=== PATIENT | male | born 1975 | race Caucasian/White ===

== ENCOUNTER 2017-04-03 16:28 | Inpatient (IN) | payer BC, OTHER ==
[~2017-04-03] VITALS: Ht 180.3 cm; Wt 76.2 kg
[2017-04-03] MEDS ORDERED: LORAZEPAM 2 MG/1 ML VIAL IM PRN (17:15)
[2017-04-03] MEDS ORDERED: ACETAMINOPHEN 325 MG TABLET PO PRN (17:15)
[2017-04-03] MEDS ORDERED: MAGNESIUM HYDROXIDE 30 ML LIQUID UDC PO PRN (17:15)
[2017-04-03] MEDS ORDERED: LORAZEPAM 1 MG TABLET PO PRN ×2 (17:15)
[2017-04-03] MEDS ORDERED: ONDANSETRON 4 MG/2 ML VIAL IM PRN (17:15)
[2017-04-03] MEDS ORDERED: MIRALAX 17 GM POWD.PACK PO PRN (17:15)
[2017-04-03] MEDS ORDERED: DICYCLOMINE HCL 20 MG TABLET PO PRN (17:15)
[2017-04-03] MEDS ORDERED: LOPERAMIDE HCL 2 MG CAPSULE PO PRN ×2 (17:15)
[2017-04-03] MEDS ORDERED: ONDANSETRON ODT 4 MG TAB.RAPDIS SL PRN (17:15)
[2017-04-03] MEDS ORDERED: diphenhydrAMINE 50 MG CAPSULE PO PRN (17:15)
--- NOTE | 2017-04-03 18:30 | NUR ---
Pre-Admission note Pt presents to [facility] for Benzo and alcohol dependence. Pt's VS: BP: 130/95, HR: 122, RR: 16, SpO2: 99%, P: no pain. PT reports being admitted to [facility] of his own free will. PT is in stable condition at this time.
--- NOTE | 2017-04-03 19:45 | NUR ---
START OF SHIFT NOTE PATIENT IS A 41 YEAR OL MALE ADMITTED TO [facility] ON 04-03-17 AT 1800. PATIENT ADMITTED FOR BENZODIAZEPINE AND ALCOHOL DETOX. PATIENT HAS BEEN USING VODKA 1 LITER DAILY FOR LAST 2 WEEKS, WELL LORAZEPAM 8 MG DAILY FOR LAST TWO WEEKS. PATIENT HAS SEIZURE AND FALL HISTORY WHILE DETOXING.PATIENT REPORTS FALL FROM BED A FEW DAYS AGO RESULTING IN PERIORBITAL EDEMA TO LEFT EYE, WELL BRUISING TO UPPER LEFT ARM. PATIENT REPORTS HE HAD A SEIZURE ON SUNDAY AT HOME. PATIENT HAS PAST MEDICAL HISTORY OF BIPOLAR DISORDER, ANXIETY, HYPERTENSION, AND IBS. REPORTS SURGERY THIS SUMMER FOR CHOLECYSTECTOMY. HE IS ALLERGIC TO CALCIUM CHANNEL BLOCKERS. HIS HOME MEDICATIONS INCLUDE STELAZINE, COGENTIN, DONNATEL, GABAPENTIN, FAMOTIDINE, FOLIC ACID AND FLONASE. PATIENT DID NOT BRING MEDICATIONS AND IS UNSURE OF DOSES AND LAST USE. PATIENT GAVE NURSE APPROXIMATE DOSES. PATIENT ALSO REPORTS HIS PRESCRIBING PSYCHIATRIST IS IN [facility]. HE STATES HE DOES NOT REMEMBER THE NAME. PATIENT PROVIDED URINE FOR DRUG SCREEN, AND LABS WERE DRAWN. BODY SEARCH COMPLETED. NO OPEN WOUNDS OR SKIN BREAKDOWN NOTED. PATIENT IS 5'11' WEIGHT 168 LBS. PATIENT IS LABILE, LOUD WITH PRESSURED SPEECH AND FLIGHT OF IDEAS. HE DENIES ANY SI OR HI. HE DENIES ANY PAST SI OR ATTEMPTS. PATIENT STATES HE WAS DIAGNOSED BIPOLAR 1 A FEW YEARS AGO AND ONLY SUFFERS FROM [facility]. STATING HIS DEPRESSIVE EPISODES HAVE BEEN A TOTAL OF 3-4 ONE BEING AFTER LOSING HIS FATHER 2 YEARS AGO TO CANCER. HE STATES THEY WERE "THICK THIEVES" AND THIS WAS A MAJOR LOSS IN HIS LIFE. 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 HE HE IS A FULL CODE AND ON A REGULAR DIET. HIS LONGEST PERIOD OF SOBRIETY IS 45 DAYS EARLIER THIS YEAR. HE REPORTS BEING AT [facility] IN [place] LAST WEEK FOR DETOX, HE ALSO REPORTS BEING AT [facility] FROM 01-27-17 TO 03-08-17. HE STATES HE THEN WENT TO [facility] IN [place] FROM 02-07-17 TO 03-08-17. VITAL SIGNS BP 135/91, P 104, R 18, SPO2 97% ON RA, T 98.4 CIWA 11. SAFETY MEASURES IN PLACE, 2 PADDED SIDE RAILS UP FOR SAFETY. CALL LIGHT WITHIN REACH. Addendum: 04/03/17 at 2344 by JUANI MCALLISTER RN ADMISSION NOTE
[2017-04-03 20:00] VITALS: BP 135/91
[2017-04-03 20:00] LABS: *AMPHETAMINE, URINE NEGATIVE (NEGATIVE); *BARBITURATE, URINE POSITIVE (NEGATIVE); *CANNABINOID, URINE NEGATIVE (NEGATIVE); *COCCAINE, URINE NEGATIVE (NEGATIVE); *OPIATE, URINE NEGATIVE (NEGATIVE); *PHENCYCLIDINE SCREEN,URINE NEGATIVE (NEGATIVE)
[2017-04-03 20:07] LABS: BASOPHILS % (AUTO) 0.7 % (0.0-2.0); EOSINOPHILS % (AUTO) 0.4 % (0.0-7.0); HEMATOCRIT 41.2 % (40-50); HEMOGLOBIN 13.8 G/DL (14.0-18.0); LYMPHOCYTES # (AUTO) 1.9 K/UL (0.8-4.8); LYMPHOCYTES % (AUTO) 35.6 % (20.5-51.5); MEAN CORPUSCULAR HEMOGLOBIN 31.5 UUG (27.0-31.0); MEAN CORPUSCULAR HGB CONC 34 g/dL (32.0-37.0); MEAN CORPUSCULAR VOLUME 94.3 FL (82.0-92.0); MONOCYTES # (AUTO) 0.6 K/UL (0.1-1.30); MONOCYTES % (AUTO) 11.3 % (0.0-11.0); NEUTROPHILS # (AUTO) 2.7 K/UL (1.8-8.9); PLATELET COUNT (AUTO) 453 K/UL (150-450); RED BLOOD CELL COUNT(AUTO) 4.37 MIL/UL (4.7-6.1); WHITE BLOOD COUNT (AUTO) 5.2 K/UL (4.0-11.2)
[2017-04-03 20:18] LABS: BILIRUBIN,TOTAL 0.5 mg/dL (0.2-1.0); MAGNESIUM 1.7 mg/dL (1.8-2.4); POTASSIUM 4.2 mmol/L (3.5-5.1); TOTAL PROTEIN, SERUM 8.1 g/dL (6.4-8.2)
[2017-04-03] MEDS: OLANZAPINE 5 MG TABLET PO SCH (20:19)
[2017-04-03] MEDS: BENZTROPINE MESYLATE 1 MG TABLET PO SCH (20:20)
[2017-04-03] MEDS: GABAPENTIN 300 MG CAPSULE PO SCH (20:20)
[2017-04-03 20:24] LABS: CREATININE 1.3 mg/dL (0.6-1.3)
[2017-04-03] MEDS ORDERED: LORAZEPAM 1 MG TABLET PO SCH (21:00)
[2017-04-03] MEDS ORDERED: THIAMINE HCL 200 MG/2 ML VIAL IM ONE (21:00)
[2017-04-03] MEDS ORDERED: TRIFLUOPERAZINE 5 MG PO SCH (21:00)
[2017-04-03] MEDS ORDERED: MAGNESIUM OXIDE 400 MG TABLET PO ONE (21:00)
[2017-04-03] MEDS ORDERED: TRIF5TAB GT (23:03)
[2017-04-03] MEDS ORDERED: BENZ1TAB7 PO (23:04)
[2017-04-03] MEDS ORDERED: PHEN16.234 PO (23:05)
[2017-04-03] MEDS ORDERED: GABA-534 PO (23:06)
[2017-04-03] MEDS ORDERED: FOLI1TAB16 PO (23:07)
[2017-04-03] MEDS ORDERED: FLUT9.9S NS (23:07)
[2017-04-03] MEDS ORDERED: FAMO20TA8 PO (23:07)
[2017-04-04] VITALS: BP 124/77
--- NOTE | 2017-04-04 | NUR ---
CIWA DEFERRED 0000 CIWA DEFERRED FOR SLEEP.
[2017-04-04 04:00] VITALS: BP 118/84
--- NOTE | 2017-04-04 04:00 | NUR ---
CIWA DEFERRED CIWA DEFERRED AT 0400 FOR SLEEP.
--- NOTE | 2017-04-04 06:48 | NUR ---
END OF SHIFT NOTE PATIENT IS A 41 YEAR OLD MALE ADMITTED TO [facility] ON 04-03-17 AT 1800. PATIENT ADMITTED FOR BENZODIAZEPINE AND ALCOHOL DETOX. PATIENT HAS BEEN USING VODKA 1 LITER DAILY FOR LAST 2 WEEKS, WELL LORAZEPAM 8 MG DAILY FOR LAST TWO WEEKS. PATIENT HAS SEIZURE AND FALL HISTORY WHILE DETOXING.PATIENT REPORTS FALL FROM BED A FEW DAYS AGO RESULTING IN PERIORBITAL EDEMA TO LEFT EYE, WELL BRUISING TO UPPER LEFT ARM. PATIENT REPORTS HE HAD A SEIZURE ON SUNDAY AT HOME. PATIENT HAS PAST MEDICAL HISTORY OF BIPOLAR DISORDER, ANXIETY, HYPERTENSION, AND IBS. HE HAS ALLERGY TO CALCIUM CHANNEL BLOCKERS. PATIENT HAS LABILE MOOD AND FLIGHT OF IDEAS. HE DENIES ANY SI OR HI. HE DENIES ANY PAST SI OR ATTEMPTS. HE IS A FULL CODE AND ON A REGULAR DIET. VITAL SIGNS 1999 BP 135/91, P 104, R 18, SPO2 97% ON RA, T 98.4 CIWA 11. PATIENT RECEIVED ONE TIME DOSE OF ATIVAN 2 MG PO AT . PATIENT RECEIVED [id number] MG IM INJECTION TO RIGHT DELTOID AT 2018.. PATIENT WITH LOW MAGNESIUM LEVEL (1.7) PATIENT WAS ADMINISTERED MAG OX 400 MG PO ORDERED FOR REPLACEMENTAT 2058, PATIENT RECEIVED ZYPREXA 5 MG PO ORDERED BY PSYCHIATRIST TO REPLACE STELAZINE, STELAZINE NOT FORMULARY IN PHARMACY. PATIENT VITAL SIGNS AT 0000 BP 124/77. P 103, R 16, SPO2 99% ON RA, T 98.0 CIWA DEFERRED FOR SLEEP. VS AT 0400 BP 118/84, P 76. R 16, SPO2 98% ON RA, T 98.1. CIWA DEFERRED FOR SLEEP. PATIENT SLEPT A TOTAL OF 8 HOURS. PATIENT INTAKE 1297, OUTPUT 1 VOID. SAFETY MEASURES IN PLACE, 2 PADDED SIDE RAILS UP FOR SAFETY. FALL AND SEIZURE PRECAUTIONS. CALL LIGHT WITHIN REACH. REPORT TO AM NURSE.
--- NOTE | 2017-04-04 07:41 | NUR ---
BEGINNING OF SHIFT Patient is a 41 year old Female, with admitting Dx: etoh/bzo Dependence. Patient with past medical history of: Anxiety,bipolar d/o, IBS, HTN, and cholecystectomy. Patient received no PRNs during operation shift supervisor. . Fall and seizure precautions in place. Patient skin is intact. Per operation shift supervisor patient slept for 8 hours, Patient with last ciwa score of: 11. Patient is scheduled to begin a 5 day ativan taper as ordered, and is scheduled to begin day 1 of taper. Patient received in bed awake, alert and oriented x4, educated patient regarding plan of care for the day and medication regimen with good verbal understanding. Safety measures in place. call light kept with in reach, will continue to monitor closely.
[2017-04-04 08:51] VITALS: BP 108/62
[2017-04-04] MEDS: OLANZAPINE 5 MG TABLET PO SCH ×2 (08:53→20:42)
[2017-04-04] MEDS: MULTIVITAMINS,THERAPEUTIC TABLET PO SCH (08:53)
[2017-04-04] MEDS: GABAPENTIN 300 MG CAPSULE PO SCH ×3 (08:53→20:42)
[2017-04-04] MEDS: IBUPROFEN 400 MG TABLET PO PRN (08:53)
[2017-04-04] MEDS: THIAMINE HCL 100 MG TABLET PO SCH (08:53)
[2017-04-04] MEDS: LORAZEPAM 1 MG TABLET PO SCH ×4 (08:53→20:42)
[2017-04-04] MEDS: DULOXETINE 60 MG CAPSULE.DR PO SCH (08:53)
[2017-04-04] MEDS: BENZTROPINE MESYLATE 1 MG TABLET PO SCH ×2 (08:53→20:42)
--- NOTE | 2017-04-04 08:53 | NUR ---
PRN MOTRIN Patient c/o 02/15 headache, provided with non pharmacological interventions with no relief, administered Motrin PO as ordered, will monitor effectiveness of medication.
[2017-04-04] MEDS: FOLIC ACID 1 MG TABLET PO SCH (08:54)
[2017-04-04] MEDS ORDERED: TUBERCULIN,PURIF.PROT.DERIV. 5 TU/0.1 ML TEST ID ONE (09:00)
--- NOTE | 2017-04-04 09:53 | NUR ---
MOTRIN REASSESSMENT Patient reports medication effective, current head ache pain level 2/10, tolerable as per patient.
[2017-04-04] MEDS ORDERED: LORAZEPAM 1 MG TABLET PO ONE (10:45)
[2017-04-04] MEDS ORDERED: PATIENT MAY USE OWN MED- MD OK NS SCH (10:45)
[2017-04-04 12:27] VITALS: BP 151/115
[2017-04-04] MEDS: CLONIDINE HCL 0.1 MG TABLET PO PRN (12:28)
--- NOTE | 2017-04-04 12:28 | NUR ---
PRN CLONIDINE Patient with blood pressure: 151/115 heart rate: 106, Administered clonidine 0.1mg PO as ordered, will monitor effectiveness of medication, patient denies chest pain.
[2017-04-04] MEDS: FLUTICASONE PROP NASAL SPRAY 16 GM BOTTLE NS SCH (12:29)
[2017-04-04] MEDS ORDERED: PATIENT MAY USE OWN MED- MD OK PO SCH (13:00)
--- NOTE | 2017-04-04 13:38 | NUR ---
CLONIDINE REASSESSMENT medication effective, blood pressure decreased to: 140/88 heart rate: 98. will continue to monitor.
[2017-04-04 17:14] VITALS: BP 116/85
--- NOTE | 2017-04-04 19:05 | NUR ---
END OF SHIFT Patient alert and oriented x4, patient compliant with therapeutic plan of care. Patient continues on Ativan taper as ordered and is currently on day 1 of taper, well tolerated, no ASE noted. Patient with admitting Dx: etoh/bzo dependence. During shift patient administered PPD as ordered to left f/a, well tolerated. 0900 assessment presented with: sweats, fine tremors, moderate anxiety, restlessness, visual hallucinations (verbalized seeing "electric in air" , moderate head fullness/head ache with ciwa score of: 16; 1300 assessment patient presented with: sweats, fine tremors, anxiety, restlessness, visual hallucinations, very mild head fullness with ciwa score of: 16; 1700 assessment patient presented with: fine tremors, barely sweating, anxiety, mild agitation, and visual hallucinations with ciwa score of: 11 Detox medication effective at reducing withdrawal symptom. Patient was administered PRN:clonidine 0.1mg PO for increased blood pressure as ordered during shift, medication effective one hour post administration blood pressure decreased. Patient was also administered Motrin as ordered, medication effective one hour post administration. Patient was encouraged to increase PO fluid intake as tolerated. Patient denies SI/HI. MD is aware of patients current status, continues under close observation. Patient endorsed to scene shifter nurse, all pertinent information discussed
--- NOTE | 2017-04-04 19:45 | NUR ---
START OF SHIFT REPORT PATIENT IS A 41 YEAR OLD MALE ADMITTED TO [facility] ON 04-03-17 FOR ALCOHOL AND BENZO DETOX. PATIENT IS CURRENTLY ON A FIVE DAY ATIVAN TAPER. HE HAS A HISTORY OF WITHDRAWAL SEIZURES AND IS ON BOTH FALL AND SEIZURE PRECAUTIONS. PATIENT HAS PAST MEDICAL HISTORY OF BIPOLAR DISORDER, ANXIETY, IBS, AND HTN. HE HAS ALLERGY TO CALCIUM CHANNEL BLOCKERS. HE IS A FULL CODE AND ON A REGULAR DIET. LAST CIWA 11 AT 1600. PATIENT REPORTED AUDITORY HALLUCINATIONS "SEEING ELECTRICITY" EARLIER IN DAY. PATIENT DENIES SI OR HI MOOD IS STABLE. SPEECH IS FLUENT AND THOUGHTS ARE LUCID. HE CURRENTLY DENIES AH OR VH. PATIENT IN ROOM AT CHANGE OF SHIFT FINISHING DINNER. STATES HE IS FEELING "BETTER". VITAL SIGNS ARE STABLE. SAFETY MEASURES IN PLACE, 2 PADDED SIDE RAILS UP FOR SAFETY. BED LOCKED IN LOWEST POSITION. CALL LIGHT WITHIN REACH.
[2017-04-04 20:00] VITALS: BP 126/91
[2017-04-05] VITALS (7 sets, daily range): BP systolic 128–153; BP diastolic 72–110
--- NOTE | 2017-04-05 | NUR ---
CIWA DEFERRED 0000 CIWA DEFERRED FOR SLEEP
[2017-04-05] MEDS: IBUPROFEN 400 MG TABLET PO PRN ×3 (04:12→21:01)
--- NOTE | 2017-04-05 04:12 | NUR ---
prn medication motrin 400 mg po given at 0412 for headache pain 4 out of 10 as well as fullness in head. Effect pending.
--- NOTE | 2017-04-05 05:12 | NUR ---
REASSESSMENT OF PATIENT PATIENT REASSESSED ONE HOUR AFTER MOTRIN 400 MG PO PRN GIVEN FOR HEADACHE. PATIENT CURRENTLY ASLEEP/NO COMPLAINTS OFFERED.
[2017-04-05 06:06] LABS: HEPATITIS B SURFACE AG Negative (Negative)
--- NOTE | 2017-04-05 06:41 | NUR ---
END OF SHIFT NOTE PATIENT IS A 41 YEAR OLD MALE ADMITTED TO [facility] ON 04/03/17 FOR ALCOHOL AND BENZO DETOX. HE IS ON A FIVE DAY ATIVAN TAPER. HE IS A FULL CODE, ON A REGULAR DIET, WITH ALLERGY TO CALCIUM CHANNEL BLOCKERS. PATIENT HAS PMH OF BIPOLAR DISORDER, ANXIETY, IBS, AND HTN. HIS MOOD HAS REMAINED STABLE, DENIES ANY SI OR HI. SPEECH CLEAR AND COHERENT. VS AT 2000 BP 126/91, P 98, R 16, SPO2 98% ON RA, T 97.3. CIWA 7. PATIENT VS AT 0000 BP 133/103, P 93, R 18, SPO2 98% ON RA, T 98.0. CIWA DEFERRED FOR SLEEP. 0400 VS BP 128/78, P 84, R 16, SPO2 98% ON RA, T 98.6 CIWA 8 WITH SYMPTOMS INCLUDING: ANXIETY, MILD FEELINGS OF PINS AND NEEDLES, MILD VISUAL DISTURBANCES, PERIODICALLY SEEING ELECTRICAL FLASHES, AND STATES HEADACHE OF 5 OUT OF 10 WITH HEAD FULLNESS REPORTED. PATIENT GIVEN MOTRIN 400 MG PO WITH EFFECT. INTAKE:2094 ML OUTPUT:2 VOIDS 1 BM. SLEPT A TOTAL OF 9 HOURS. SAFETY MEASURES IN PLACE, CALL LIGHT WITHIN REACH, BED LOCKED AND IN LOWEST POSITION WITH 2 PADDED SIDE RAILS UP FOR SAFETY. REPORT TO AM NURSE.
[2017-04-05] MEDS: THIAMINE HCL 100 MG TABLET PO SCH (08:55)
[2017-04-05] MEDS: GABAPENTIN 300 MG CAPSULE PO SCH ×3 (08:56→20:32)
[2017-04-05] MEDS: FOLIC ACID 1 MG TABLET PO SCH (08:56)
[2017-04-05] MEDS: OLANZAPINE 5 MG TABLET PO SCH ×2 (08:56→20:33)
[2017-04-05] MEDS: BENZTROPINE MESYLATE 1 MG TABLET PO SCH ×2 (08:56→20:33)
[2017-04-05] MEDS: MULTIVITAMINS,THERAPEUTIC TABLET PO SCH (08:56)
[2017-04-05] MEDS: LORAZEPAM 1 MG TABLET PO SCH ×3 (08:56→20:33)
[2017-04-05] MEDS: FLUTICASONE PROP NASAL SPRAY 16 GM BOTTLE NS SCH (08:57)
--- NOTE | 2017-04-05 09:00 | NUR ---
START OF SHIFT Received report from production shift supervisor nurse. Patient is 24 year old female admitted for medically supervised withdrawal from alcohol. Patient is full code with allergy to apples. Patient is alert and oriented X4. On 5-Day Ativan taper. On assessment this AM: CIWA:9. Denies SOB, chest pain. Vitals signs: BP 153/110, HR 116, RR 20, Temp 98.5, 02 sat 94% RA. Reports anxiety, bilateral hand tremors noted, feelings of fullness on the head and visual hallucinations (seeing flashes). Denies sweating, body ache, nausea, vomiting, stomach cramping, tactile disturbance and auditory hallucinations. Med compliant with AM meds. Patient requesting for famotidine and sucralfate, MD made aware. Tolerating breakfast without n/v at this time. Patient was encouraged to attend group meetings today. Will continue to monitor patient. Addendum: 04/05/17 at 1007 by GILLES IYER RN Correction: this patient is 41 year old male admitted for medically supervised withdrawal from alcohol and lorazepam. Patient is full code with allergy to calcium channel blocking agents.
[2017-04-05] MEDS: DULOXETINE 60 MG CAPSULE.DR PO SCH (09:18)
[2017-04-05 10:39] LABS: CREATININE 1.2 mg/dL (0.6-1.3); MAGNESIUM 1.6 mg/dL (1.8-2.4); POTASSIUM 4.6 mmol/L (3.5-5.1)
--- NOTE | 2017-04-05 10:50 | NUR ---
MD COMMUNICATION Multifocal Lens Assembler received phone call from lab that patient's blood glucose was 356. Md was notified.
[2017-04-05] MEDS: CLONIDINE HCL 0.1 MG TABLET PO PRN (10:54)
--- NOTE | 2017-04-05 10:54 | NUR ---
PRN CLONIDINE Patient's BP 148/106, HR 103. PRN clonidine given. Will continue to monitor patient.
[2017-04-05] MEDS ORDERED: DEXTROSE 50% 50 ML DISP.SYRIN IV PRN (11:15)
[2017-04-05] MEDS ORDERED: LINAGLIPTIN 5 MG TABLET PO ONE (11:30)
--- NOTE | 2017-04-05 11:54 | NUR ---
REASSESSMENT PRN CLONIDINE Patient's BP 137/101, HR 100, effective.
[2017-04-05] MEDS: BLOOD SUGAR DIAGNOSTIC 1 EACH STRIP VI SCH ×3 (12:01→20:36)
[2017-04-05] MEDS ORDERED: MAGNESIUM OXIDE 400 MG TABLET PO ONE (12:15)
[2017-04-05] MEDS ORDERED: FAMOTIDINE 20 MG TABLET PO ONE (12:15)
[2017-04-05] MEDS ORDERED: SITAGLIPTIN PHOSPHATE 50 MG TABLET PO ONE (12:15)
[2017-04-05] MEDS: SUCRALFATE 1 G TABLET PO SCH ×2 (12:28→16:48)
--- NOTE | 2017-04-05 13:03 | NUR ---
Therapist prompted client about group times. Client stated he will attend all groups today.
[2017-04-05] MEDS: INSULIN REGULAR, HUMAN 300 UNIT/3 ML VIAL SQ PRN ×2 (13:11→16:50)
--- NOTE | 2017-04-05 16:48 | NUR ---
PRN IBUPROFEN Patient complained of L eye pain 2/10. PRN ibuprofen given. Will continue to monitor patient.
--- NOTE | 2017-04-05 18:40 | NUR ---
REASSESSMENT PRN IBUPROFEN Patient reports decreased pain, 0/10, effective
--- NOTE | 2017-04-05 18:54 | NUR ---
END OF SHIFT Received report from night clerk auditor nurse. Patient is 41 year old male admitted for medically supervised withdrawal from alcohol and lorazepam. Patient is full code with allergy to calcium channel blocking agents. Patient is alert and oriented X4. On 5-Day Ativan taper. Most recent CIWA: 5. Compliant with routine meds during this shift. Patient received clonidine for elevated BP and ibuprofen for L eye pain this shift, effective. Tolerating meals without n/v at this time. Blood sugar at lunch time was 262 (9 units sliding scale regular insulin given) and dinner time was 128 (no sliding scale required). Will continue to monitor patient. Patient was encouraged to attend group meetings today. Will continue to monitor patient.
--- NOTE | 2017-04-05 19:15 | NUR ---
Start of Shift Note: Patient is a 41 y/o male admitted on 04/03/17 for ETOH and Benzo dependence. Patient reported drinking 1 liter of Vodka daily for 2 weeks and took Ativan 8mg daily for 2 weeks. Patient has PMHx of Bipolar disorder, Anxiety, IBS, HTN, Diabetes & hx of Cholecystectomy. No seizure history noted Patient is on a regular diet and pt is allergic to any Calcium Channel Blockers. Full Code status. Patient is on a 5-day Ativan taper and tolerating well. Last CIWA is 5. Pt was given a PRN Motrin & Clonidine during day shift. Last Blood Sugar was 128 mg/dl before dinner. Patient is alert & oriented x4. No shortness of breath noted. Respiration even & unlabored. Abdomen soft & non-distended. No nausea/vomiting noted. Patient denies any pain/discomfort. Hand tremors felt but not seen. Patient reported very light visual disturbance at this time. Safety measures in place. Bed locked in lowest position. Both side rails up. Call light within pt's reach. Will continue to monitor patient.
[2017-04-05] MEDS: INSULIN REGULAR, HUMAN 300 UNITS/3 ML VIAL SQ PRN (20:37)
--- NOTE | 2017-04-05 21:01 | NUR ---
PRN Motrin Patient complained of 3/10 left eye pain and left arm pain. PRN Motrin PO administered as ordered. Will continue to monitor for effectiveness of medication.
--- NOTE | 2017-04-05 22:01 | NUR ---
PRn Reassessment Patient verbalized relief from eye pain. PRN medication effective. Will continue to monitor patient.
--- NOTE | 2017-04-06 | NUR ---
Vitals/Ciwa deferred Patient refused vitals at this time. Patient asleep in bed and appears comfortable. No shortness of breath noted. Unable to assess CIWA at this time. Will continue to monitor patient.
[2017-04-06] MEDS: MAG HYDROX/AL HYDROX/SIMETH 30 ML LIQUID UDC PO PRN ×2 (06:46→17:22)
[2017-04-06] MEDS: SUCRALFATE 1 G TABLET PO SCH ×3 (06:46→17:16)
--- NOTE | 2017-04-06 06:46 | NUR ---
PRN Maalox Patient complained of heartburn. PRN Maalox administered as ordered. Will continue to monitor patient.
--- NOTE | 2017-04-06 07:08 | NUR ---
Start of Shift Endorsement received from nightshift nurse. PT is a 41 y/o male admitted for alcohol and benzo dependence. Pt has been placed on a 5 day Ativan taper. Pt is tolerating the taper and moderately withdrawing AEB CIWA 4. PT reports sleeping 7 hours. Pt received PRN Motrin and Maalox. VS WNL. Full Code. Pt is alert and oriented x4. PT is alert and oriented x4. Pt is in STABLE condition at this time. Remains compliant with medication and diet regimen. All needs have been met, All safety measures in place per hospital policy. Bed in lowest position, side rails up x2, call-light within reach. Will continue to monitor
--- NOTE | 2017-04-06 07:13 | NUR ---
End of Shift Note: Patient had an uneventful night. Patient continues on his Ativan taper and tolerating well. Last CIWA is 4. Patient reported that medication is effective in controlling his withdrawal symptoms. PRN Motrin was given to patient during my shift and was effective. Patient noted with a 312 mg/dl at 2100 and was medicated with 8 units of regular insulin as prescribed. Patient remained stable and vitals remains WNL. Patient remains compliant with medications and treatment plan. Patient is alert & oriented x4. No s/s of distress noted. Patient still asleep at this time. Patient slept for a total of 6 hours. Pt consumed 1000ml of fluids. Voided 1x with no bowel movement. All needs attended & met. Safety measures in place. Will endorse pt to day shift nurse.
[2017-04-06] MEDS: BLOOD SUGAR DIAGNOSTIC 1 EACH STRIP VI SCH ×4 (07:30→21:21)
[2017-04-06 08:00] VITALS: BP 165/94
--- NOTE | 2017-04-06 08:00 | NUR ---
Accucheck Did not perform accucheck on pt, the pt got a blood draw for the blood glucose test performed instead.
[2017-04-06] MEDS: BENZTROPINE MESYLATE 1 MG TABLET PO SCH ×2 (08:10→21:16)
[2017-04-06] MEDS: MULTIVITAMINS,THERAPEUTIC TABLET PO SCH (08:10)
[2017-04-06] MEDS: GABAPENTIN 300 MG CAPSULE PO SCH ×3 (08:10→21:16)
[2017-04-06] MEDS: FOLIC ACID 1 MG TABLET PO SCH (08:10)
[2017-04-06] MEDS: OLANZAPINE 5 MG TABLET PO SCH ×2 (08:10→21:17)
[2017-04-06] MEDS: FLUTICASONE PROP NASAL SPRAY 16 GM BOTTLE NS SCH (08:11)
[2017-04-06] MEDS: FAMOTIDINE 20 MG TABLET PO SCH (08:11)
[2017-04-06] MEDS: THIAMINE HCL 100 MG TABLET PO SCH (08:11)
[2017-04-06] MEDS: LINAGLIPTIN 5 MG TABLET PO SCH (08:11)
[2017-04-06] MEDS: DULOXETINE 60 MG CAPSULE.DR PO SCH (08:11)
[2017-04-06] MEDS ORDERED: LORAZEPAM 1 MG TABLET PO SCH ×2 (09:00→21:00)
[2017-04-06] MEDS ORDERED: SITAGLIPTIN PHOSPHATE 50 MG TABLET PO SCH (09:00)
[2017-04-06] MEDS: INSULIN REGULAR, HUMAN 300 UNIT/3 ML VIAL SQ PRN ×2 (09:17→11:22)
--- NOTE | 2017-04-06 11:16 | NUR ---
PRN Medication Pt received PRN Motrin for pain of 6/10 reported at the site of left bruised eye. Will re-asses.
[2017-04-06] MEDS: IBUPROFEN 400 MG TABLET PO PRN ×2 (11:18→21:16)
--- NOTE | 2017-04-06 11:40 | NUR ---
Medication re-assessment Pt reports pain of 3/10 at this time. Medication was effective.
[2017-04-06 12:00] VITALS: BP 146/88
[2017-04-06] MEDS: CLONIDINE HCL 0.1 MG TABLET PO PRN (12:12)
--- NOTE | 2017-04-06 12:12 | NUR ---
PRN Medication Pt received PRN Clonidine due to BP of 163/115. Will re-assess.
[2017-04-06] MEDS ORDERED: hydrALAZINE HCL 50 MG TABLET PO PRN (12:30)
--- NOTE | 2017-04-06 12:45 | NUR ---
Medication Re-assessment Medication was effective AEB BP: 145/86
[2017-04-06] MEDS: LORAZEPAM 1 MG TABLET PO SCH ×2 (13:27→17:16)
[2017-04-06] MEDS: CLONIDINE HCL 0.1 MG TABLET PO SCH ×2 (15:29→21:17)
[2017-04-06 16:00] VITALS: BP 114/68
--- NOTE | 2017-04-06 17:25 | NUR ---
PRN Medication Administered PRN Maalox for heartburn
[2017-04-06] MEDS ORDERED: LORAZEPAM 1 MG TABLET PO PRN ×2 (17:45)
--- NOTE | 2017-04-06 17:50 | NUR ---
Medication Re-assessment Pt reports relief from heartburn, medication was effective.
[2017-04-06] MEDS: METFORMIN HCL 500 MG TABLET PO SCH (18:34)
--- NOTE | 2017-04-06 19:06 | NUR ---
End of Shift Endorsement given to nightshift nurse. PT is a 41 y/o male admitted for alcohol and benzo dependence. Pt has been placed on a 5 day Ativan taper. Pt is tolerating the taper and moderately withdrawing AEB CIWA 6 at 1600. Pt participated in groups and activities. Pt presents with increased anxiety and agitation. Pt received PRN Motrin, Clonidine and Maalox. VS WNL. Full Code. Pt is alert and oriented x4. Intake: 2275ml, Void x4, BM x2. PT is alert and oriented x4. Pt is in STABLE condition at this time. Remains compliant with medication and diet regimen. All needs have been met, All safety measures in place per hospital policy. Bed in lowest position, side rails up x2, call-light within reach. Will continue to monitor
--- NOTE | 2017-04-06 19:15 | NUR ---
Start of Shift Note: Patient is a 41 y/o male admitted on 04/03/17 for ETOH and Benzo dependence. Patient reported drinking 1 liter of Vodka daily for 2 weeks and took Ativan 8mg daily for 2 weeks. Patient has PMHx of Bipolar disorder, Anxiety, IBS, HTN, Diabetes & hx of Cholecystectomy. No seizure history noted Patient is on a regular diet and pt is allergic to any Calcium Channel Blockers. Full Code status. Patient is on a 5-day Ativan taper and tolerating well. Last CIWA is 6. Pt was given a PRN Motrin, Clonidine & Maalox during day shift. Last Blood Sugar noted was 99 mg/dl. Patient is alert & oriented x4. No shortness of breath noted. Respiration even & unlabored. Abdomen soft & non-distended. No nausea/vomiting noted. Patient complained of 5/10 left eye pain, & anxiety upon assessment. Hand tremors felt but not seen. Pt denies any hallucinations at this time. Safety measures in place. Bed locked in lowest position. Both side rails up. Call light within pt's reach. Will continue to monitor patient.
[2017-04-06 20:00] VITALS: BP 137/88
--- NOTE | 2017-04-06 21:16 | NUR ---
PRN Motrin Patient complained a 4/10 left eye pain. PRN Motrin administered as ordered. Will monitor for effectiveness of medication.
[2017-04-06] MEDS: INSULIN REGULAR, HUMAN 300 UNITS/3 ML VIAL SQ PRN (21:23)
--- NOTE | 2017-04-06 22:16 | NUR ---
PRN Reassessment PRN medication effective. Pt verbalized relief from left eye pain. Patient lying in bed and appears comfortable. Will continue to monitor.
[2017-04-07 04:00] VITALS: BP 128/76
[2017-04-07] MEDS ORDERED: BLOOD SUGAR DIAGNOSTIC 1 EACH STRIP VI ONE (05:30)
--- NOTE | 2017-04-07 05:32 | NUR ---
Patient requesting blood glucose level to be checked. Pt stated "I am about to eat, so I want to know where my blood glucose level is at". Blood glucose checked as ordered and obtained a result of 318mg/dl. Encourage pt to follow dietary diabetic compliance but pt refused. Will continue to monitor patient.
[2017-04-07 05:41] VITALS: BP 124/93
[2017-04-07] MEDS: IBUPROFEN 400 MG TABLET PO PRN ×2 (05:41→21:06)
--- NOTE | 2017-04-07 05:41 | NUR ---
PRN Motrin Patient complained a 4/10 left eye pain. PRN Motrin administered as ordered. Will monitor for effectiveness of medication.
[2017-04-07] MEDS: SUCRALFATE 1 G TABLET PO SCH ×3 (06:40→16:58)
--- NOTE | 2017-04-07 06:41 | NUR ---
PRN Reassessment PRN medication effective. Pt verbalized relief from left eye pain. Will continue to monitor patient.
--- NOTE | 2017-04-07 07:08 | NUR ---
End of Shift Note: Patient continues on his Ativan taper and tolerating well. Last CIWA is 5. Patient reported that medication is effective in controlling his withdrawal symptoms. PRN Motrin was given 2x to patient during my shift and was effective. Patient noted with a 396 mg/dl at 2100 and was medicated with 10 units of regular insulin as prescribed. Blood glucose level was also checked at 0532 per pt's request and noted with a level of 318mg/dl. Pt is compliant with medications but non-compliant with dietary regimen. Educated pt regarding importance of dietary compliance. Patient remained stable and vitals remains WNL. Patient is alert & oriented x4. No s/s of distress noted. Patient slept for a total of 9 hours. Pt consumed 800ml of fluids. Voided 2x with no bowel movement. All needs attended & met. Safety measures in place. Will endorse pt to day shift nurse.
--- NOTE | 2017-04-07 07:58 | NUR ---
START OF SHIFT NOTE Received pt awake in room aox4. Patient reports feeling better, but has slight pressure in his head. He was given PRN Motrin x2 per night nurse. He is on a 5 day Ativan taper. Pt on seizure precautions for seizure history. Patient diabetic with accucheks AC and HS. Last CIWA 5 per night nurse. Encouraged pt to attend groups and activities. Encouraged pt to increase fluid intake to facilitate detox. Will monitor closely and offer help.
[2017-04-07 08:00] VITALS: BP 122/84
[2017-04-07] MEDS: BLOOD SUGAR DIAGNOSTIC 1 EACH STRIP VI SCH ×4 (08:08→21:10)
[2017-04-07] MEDS: INSULIN REGULAR, HUMAN 300 UNIT/3 ML VIAL SQ PRN ×2 (08:11→16:58)
[2017-04-07] MEDS: LINAGLIPTIN 5 MG TABLET PO SCH (08:13)
[2017-04-07] MEDS: FLUTICASONE PROP NASAL SPRAY 16 GM BOTTLE NS SCH (08:13)
[2017-04-07] MEDS: DULOXETINE 60 MG CAPSULE.DR PO SCH (08:14)
[2017-04-07] MEDS: BENZTROPINE MESYLATE 1 MG TABLET PO SCH ×2 (08:14→21:06)
[2017-04-07] MEDS: CLONIDINE HCL 0.1 MG TABLET PO SCH ×3 (08:14→21:06)
[2017-04-07] MEDS: MULTIVITAMINS,THERAPEUTIC TABLET PO SCH (08:14)
[2017-04-07] MEDS: FOLIC ACID 1 MG TABLET PO SCH (08:14)
[2017-04-07] MEDS: METFORMIN HCL 500 MG TABLET PO SCH ×2 (08:14→17:00)
[2017-04-07] MEDS: GABAPENTIN 300 MG CAPSULE PO SCH ×2 (08:14→21:06)
[2017-04-07] MEDS: FAMOTIDINE 20 MG TABLET PO SCH (08:14)
[2017-04-07] MEDS: OLANZAPINE 5 MG TABLET PO SCH (08:15)
[2017-04-07] MEDS: THIAMINE HCL 100 MG TABLET PO SCH (08:15)
[2017-04-07] MEDS: LORAZEPAM 1 MG TABLET PO SCH ×3 (08:15→21:06)
--- NOTE | 2017-04-07 08:30 | NUR ---
PRN MEDICATION ZOFRAN GIVEN FOR C/O NAUSEA. PT REPORTS NO EMESIS EPISODES. WILL MONITOR
--- NOTE | 2017-04-07 09:14 | NUR ---
PRN REASSESSMENT PT REPORTS IMPROVEMENT IN SYMPTOMS
[2017-04-07 12:00] VITALS: BP 149/102
[2017-04-07] MEDS ORDERED: LORAZEPAM 1 MG TABLET PO PRN ×2 (13:45)
[2017-04-07] MEDS: GABAPENTIN 400 MG CAPSULE PO SCH (14:10)
[2017-04-07 16:00] VITALS: BP 146/91
[2017-04-07] MEDS: glipiZIDE 5 MG TABLET PO SCH (16:57)
--- NOTE | 2017-04-07 18:28 | NUR ---
END OF SHIFT NOTE PATIENT CONTINUED ON 5 DAY ATIVAN TAPER AND TOLERATING WELL. PRN ZOFRAN GIVEN DURING SHIFT FOR C/O NAUSEA WITH EFFECTIVENESS. PT ATTENDED GROUPS AND ACTIVITIES AND SOCIALIZED WITH BEERS. PT CONTINUED ON ACCUCHEKS ORDERED AND COVERED WITH INSULIN ORDERED. LAST CIWA 5. PT IS COMPLIANT WITH MEDICATIONS. VITAL SIGNS STABLE. NO DISTRESS NOTED. ALL NEEDS MET. ALL SAFETY MEASURES IN PLACE. ENDORSED TO NIGHT NURSE.
--- NOTE | 2017-04-07 19:15 | NUR ---
Start of Shift Note: Patient is a 41 y/o male admitted on 04/03/17 for ETOH and Benzo dependence. Patient reported drinking 1 liter of Vodka daily for 2 weeks and took Ativan 8mg daily for 2 weeks. Patient has PMHx of Bipolar disorder, Anxiety, IBS, HTN, Diabetes & hx of Cholecystectomy. No seizure history noted Patient is on a regular diet and pt is allergic to any Calcium Channel Blockers. Full Code status. Patient is on a 5-day Ativan taper and tolerating well. Last CIWA is 5. Pt was given a Zofran for nausea during day shift. Last Blood Sugar noted was 260 mg/dl. Patient is alert & oriented x4. No shortness of breath noted. Respiration even & unlabored. Abdomen soft & non-distended. No nausea/vomiting noted. Patient complained of 4/10 left eye pain, mild headache, & anxiety upon assessment. Slight hand tremors noted. Pt reports very light visual disturbance at this time. Safety measures in place. Bed locked in lowest position. Both side rails up. Call light within pt's reach. Will continue to monitor patient.
[2017-04-07 20:00] VITALS: BP 139/96
--- NOTE | 2017-04-07 21:06 | NUR ---
PRN Motrin Patient complains of 3/10 left eye pain. PRN Motrin administered as ordered. Will continue to monitor patient.
[2017-04-07] MEDS: INSULIN REGULAR, HUMAN 300 UNITS/3 ML VIAL SQ PRN (21:11)
--- NOTE | 2017-04-07 22:06 | NUR ---
PRN Reassessment PRN medication effective. Pt verbalized relief from left eye pain. Will continue to monitor patient.
[2017-04-08 04:00] VITALS: BP 123/89
--- NOTE | 2017-04-08 05:01 | NUR ---
PRN Ativan Patient presented with anxiety, mild headache and hand tremors. Pt medicated with Ativan 1mg PO as ordered. Will monitor for effectiveness of medication.
--- NOTE | 2017-04-08 06:01 | NUR ---
PRN Reassessment Pt verbalized decrease in anxiety and slight relief from headache. Hand tremors felt. Pt observed in room calm. Safety measures in place. Will continue to monitor patient.
[2017-04-08] MEDS: glipiZIDE 5 MG TABLET PO SCH (06:45)
[2017-04-08] MEDS: SUCRALFATE 1 G TABLET PO SCH ×3 (06:45→16:59)
--- NOTE | 2017-04-08 07:10 | NUR ---
Start of shift note SBAR report rcv'd. Pt was admitted for ETOH and benzo dependence. Pt has an allergy to Ca channel blockers, is full code and on a regular diet. Pt has a PMHx of bipolar d/o, anxiety, IBS, HTN, DM and had a cholecystectomy. Pt is on a 5 day ativan taper and tolerating well per report. At this time, pt has no complaints. Will continue to monitor pt. All needs addressed at this time. WIll continue to monitor pt.
--- NOTE | 2017-04-08 07:12 | NUR ---
End of Shift Note: Patient continues on his Ativan taper and tolerating well. Last CIWA is 3. Patient reported that medication is effective in controlling his withdrawal symptoms. PRN Motrin for left eye pain & Ativan 1mg for s/sx of withdrawal was given to patient during my shift and was effective. Patient noted with a 216 mg/dl at 2100 and was medicated with 4 units of regular insulin as prescribed. Pt is compliant with medications but non-compliant with dietary regimen. Educated pt regarding importance of dietary compliance. Monitored closely for signs & symptoms of withdrawals. Patient remained stable and vitals remains WNL. Patient is alert & oriented x4. No s/s of distress noted. Patient slept for a total of 6 hours. Pt consumed 1000 ml of fluids. Voided 2x with no bowel movement. All needs attended & met. Safety measures in place. Will endorse pt to day shift nurse.
[2017-04-08] MEDS: MAG HYDROX/AL HYDROX/SIMETH 30 ML LIQUID UDC PO PRN (07:27)
--- NOTE | 2017-04-08 07:27 | NUR ---
PRN administration Pt c/o dyspepsia. Administered PRN maalox per MD order. Will continue to monitor pt
[2017-04-08] MEDS: BLOOD SUGAR DIAGNOSTIC 1 EACH STRIP VI SCH ×4 (07:29→20:55)
--- NOTE | 2017-04-08 07:57 | NUR ---
Reassessment Pt states that the maalox was effective in alleviating his dyspepsia. Will continue to monitor pt.
[2017-04-08 08:00] VITALS: BP 153/102
[2017-04-08] MEDS: FOLIC ACID 1 MG TABLET PO SCH (08:16)
[2017-04-08] MEDS: FLUTICASONE PROP NASAL SPRAY 16 GM BOTTLE NS SCH (08:16)
[2017-04-08] MEDS: METFORMIN HCL 500 MG TABLET PO SCH ×2 (08:16→17:59)
[2017-04-08] MEDS: LINAGLIPTIN 5 MG TABLET PO SCH (08:16)
[2017-04-08] MEDS: BENZTROPINE MESYLATE 1 MG TABLET PO SCH ×2 (08:16→21:01)
[2017-04-08] MEDS: MULTIVITAMINS,THERAPEUTIC TABLET PO SCH (08:16)
[2017-04-08] MEDS: GABAPENTIN 400 MG CAPSULE PO SCH (08:16)
[2017-04-08] MEDS: IBUPROFEN 400 MG TABLET PO PRN ×2 (08:16→21:01)
--- NOTE | 2017-04-08 08:16 | NUR ---
PRN administration Pt c/o headache 10/16. Administered PRN motrin per MD order. Will continue to monitor pt.
[2017-04-08] MEDS: CLONIDINE HCL 0.1 MG TABLET PO SCH ×3 (08:17→21:01)
[2017-04-08] MEDS: THIAMINE HCL 100 MG TABLET PO SCH (08:17)
[2017-04-08] MEDS: DULOXETINE 60 MG CAPSULE.DR PO SCH (08:17)
[2017-04-08] MEDS: FAMOTIDINE 20 MG TABLET PO SCH (08:17)
[2017-04-08] MEDS: INSULIN REGULAR, HUMAN 300 UNIT/3 ML VIAL SQ PRN ×2 (08:19→17:03)
[2017-04-08] MEDS ORDERED: LORAZEPAM 1 MG TABLET PO SCH (09:00)
--- NOTE | 2017-04-08 09:16 | NUR ---
Reassessment Pt states that the pain in his head is gone, however pt states that he still feels "foggy" and that he will speak to Dr Lake during his rounds. Pt has no further complaints and states that he is comfortable at this time. Will continue to monitor pt.
[2017-04-08 12:00] VITALS: BP 144/100
[2017-04-08] MEDS: GABAPENTIN 300 MG CAPSULE PO SCH ×2 (14:09→21:00)
[2017-04-08] MEDS: LORAZEPAM 1 MG TABLET PO SCH ×2 (14:09→21:02)
[2017-04-08] MEDS: BACLOFEN 10 MG TABLET PO SCH ×2 (14:10→21:00)
[2017-04-08] MEDS ORDERED: LISINOPRIL 10 MG TABLET PO ONE (15:00)
[2017-04-08 16:00] VITALS: BP 143/101
[2017-04-08] MEDS: glipiZIDE 10 MG TABLET PO SCH (17:58)
--- NOTE | 2017-04-08 18:45 | NUR ---
End of shift note Pt was admitted for ETOH and benzo dependence. Pt has an allergy to Calcium channel blockers, is full code and on a CCHO diet. Pt has a PMHx of bipolar d/o, anxiety, IBS, HTN, DM II and had a cholecystectomy. Pt is on a 5 day ativan taper, which was adjusted during the shift by Dr Lake d/t his s/s of withdrawal. At this time, pt has no complaints. Pt had 2 PRN medications during the shift, his PO diabetic medications were adjusted due to his labile blood glucose results and pt's PO dietary intake. Pt educated several times about a diabetic diet, pt is noncompliant and continues to eat "whatever I want". Pt had a CIWA of 5 at 1600. Pt ate all of his meals plus multiple snacks. Pt had 5 voids, and 1 BM and pt drank 1902ml of fluids. All needs addressed at this time. Will endorse SBAR to oncoming shift.
--- NOTE | 2017-04-08 19:30 | NUR ---
START OF SHIFT Pt is a 41 y/o male admitted for ETOH and benzo dependence. Pt has an allergy to Calcium channel blockers, is full code and on a CCHO diet. Pt has a PMHx of bipolar d/o, anxiety, IBS, HTN, DM II and had a cholecystectomy. Pt is on a 5 day ativan taper and is tolerating well.Pt is compliant with his medications and care.Last CIWA= 5 at 1600. All needs met.All safety measures in place per hospital policy. Will continue to monitor.
[2017-04-08 20:00] VITALS: BP 127/85
[2017-04-08] MEDS: INSULIN REGULAR, HUMAN 300 UNITS/3 ML VIAL SQ PRN (20:59)
--- NOTE | 2017-04-08 21:01 | NUR ---
PRN MOTRIN GIVEN FOR HEADACHE,PAIN LEVEL 5/10.WILL MONITOR FOR EFFECTIVENESS.
--- NOTE | 2017-04-08 22:00 | NUR ---
PRN MOTRIN EFFECTIVE.HEADACHE RELIEVED.
[2017-04-09] VITALS: BP 132/84
--- NOTE | 2017-04-09 03:35 | NUR ---
PRN TYLENOL GIVEN FOR GENERAL BODYACHE,10/16.WILL MONITOR.
[2017-04-09 04:00] VITALS: BP 133/91
--- NOTE | 2017-04-09 04:35 | NUR ---
PRN EFFECTIVE,BODY ACHE DECREASED 07/18.PT RESTING IN BED.
--- NOTE | 2017-04-09 06:34 | NUR ---
END OF SHIFT Pt is a 41 y/o male admitted for ETOH and benzo dependence. Pt has an allergy to Calcium channel blockers, is full code and on a CCHO diet. Pt has a PMHx of bipolar d/o, anxiety, IBS, HTN, DM II and had a cholecystectomy. Pt is on a 5 day ativan taper and is tolerating well.Pt is compliant with his medications and care.Pt needs constant prompting to comply with his diet.Last CIWA= 4 at 0400.PRN Motrin and Tylenol were given last night and were effective.Pt slept 7 hrs last night,fluid intake was 1402 mls,voided x 2.Pt is resting in bed at this time. All needs met.All safety measures in place per hospital policy. Will continue to monitor for safety.
--- NOTE | 2017-04-09 07:40 | NUR ---
START OF SHIFT Received report from slitter and rewinder machine operator nurse. 41 year old male patient admitted on 04/03/17 for ETOH and benzo withdrawals. Pt has been compliant with ordered Ativan taper. Alert/oriented x4. PRN Motrin and Tylenol administered and effective. Most recent CIWA is 4. Pt is a diabetic and is compliant with ordered accu checks and sliding scale. Education is provided on importance of diet and med compliance. Pt remains safe and stable at this time. Will continue to monitor.
[2017-04-09] MEDS: BLOOD SUGAR DIAGNOSTIC 1 EACH STRIP VI SCH ×4 (08:00→20:39)
[2017-04-09] MEDS: glipiZIDE 10 MG TABLET PO SCH ×2 (08:00→16:59)
[2017-04-09] MEDS: GABAPENTIN 300 MG CAPSULE PO SCH (08:01)
[2017-04-09] MEDS: FAMOTIDINE 20 MG TABLET PO SCH (08:01)
[2017-04-09] MEDS: LINAGLIPTIN 5 MG TABLET PO SCH (08:01)
[2017-04-09] MEDS: LISINOPRIL 10 MG TABLET PO SCH (08:01)
[2017-04-09] MEDS: SUCRALFATE 1 G TABLET PO SCH ×3 (08:01→16:59)
[2017-04-09] MEDS: MULTIVITAMINS,THERAPEUTIC TABLET PO SCH (08:01)
[2017-04-09] MEDS: FOLIC ACID 1 MG TABLET PO SCH (08:02)
[2017-04-09] MEDS: DULOXETINE 60 MG CAPSULE.DR PO SCH (08:02)
[2017-04-09] MEDS: THIAMINE HCL 100 MG TABLET PO SCH (08:02)
[2017-04-09] MEDS: BENZTROPINE MESYLATE 1 MG TABLET PO SCH ×2 (08:02→20:35)
[2017-04-09] MEDS: BACLOFEN 10 MG TABLET PO SCH ×3 (08:02→20:35)
[2017-04-09] MEDS: CLONIDINE HCL 0.1 MG TABLET PO SCH ×3 (08:02→20:35)
[2017-04-09] MEDS: FLUTICASONE PROP NASAL SPRAY 16 GM BOTTLE NS SCH (08:05)
[2017-04-09 08:10] VITALS: BP 134/87
[2017-04-09] MEDS: METFORMIN HCL 500 MG TABLET PO SCH ×2 (08:11→17:05)
[2017-04-09] MEDS: INSULIN REGULAR, HUMAN 300 UNIT/3 ML VIAL SQ PRN ×2 (08:12→17:06)
[2017-04-09] MEDS ORDERED: LORAZEPAM 1 MG TABLET PO SCH (09:00)
[2017-04-09] MEDS: MAG HYDROX/AL HYDROX/SIMETH 30 ML LIQUID UDC PO PRN ×2 (11:04→23:10)
--- NOTE | 2017-04-09 11:05 | NUR ---
PRN MAALOX Pt c/o of heartburn, PRN Maalox administered, will reassess.
--- NOTE | 2017-04-09 12:05 | NUR ---
REASSESSMENT Pt denies heartburn at this time, medication was effective. Education provided on appropriate diet.
[2017-04-09] MEDS: IBUPROFEN 400 MG TABLET PO PRN ×2 (12:24→22:42)
--- NOTE | 2017-04-09 12:24 | NUR ---
PRN MOTRIN Pt c/o 01/15 headache. PRN Motrin administered as ordered. Will reassess.
[2017-04-09 12:38] VITALS: BP 129/88
--- NOTE | 2017-04-09 13:24 | NUR ---
REASSESSMENT Pt denies pain at this time, medication was effective.
[2017-04-09] MEDS: GABAPENTIN 400 MG CAPSULE PO SCH ×2 (15:09→20:35)
[2017-04-09 16:55] VITALS: BP 132/86
--- NOTE | 2017-04-09 18:46 | NUR ---
END OF SHIFT Pt was compliant with ordered meds, accu checks and insulin throughout shift. Most recent CIWA is 5. V/S remain WNL throughout shift. Pt attends groups and activities. PRN Maalox and Motrin administered and effective. Most recent glucose was 260mg/dl and 9 units of ordered Insulin provided. Pt education provided about diet compliance. Pt is medically cared for discharge. Night nurse to continue monitoring.
[2017-04-09] MEDS ORDERED: METF500T4 PO (18:49)
[2017-04-09] MEDS ORDERED: DULO60CA45 PO (18:49)
[2017-04-09] MEDS ORDERED: FAMO20TA8 PO (18:49)
[2017-04-09] MEDS ORDERED: BENZ1TAB7 PO (18:49)
[2017-04-09] MEDS ORDERED: LISI10TA5 PO (18:49)
[2017-04-09] MEDS ORDERED: DIPH50CA37 PO (18:49)
[2017-04-09] MEDS ORDERED: SITA100T PO (18:49)
[2017-04-09] MEDS ORDERED: GLIP10TA11 PO (18:49)
[2017-04-09] MEDS ORDERED: BACL10TA PO (18:49)
[2017-04-09] MEDS ORDERED: GABA-536 PO (18:49)
[2017-04-09] MEDS ORDERED: CLON0.1T14 PO (18:49)
--- NOTE | 2017-04-09 19:30 | NUR ---
START OF SHIFT Pt is a 41 y/o male admitted for ETOH and benzo dependence. Pt has an allergy to Calcium channel blockers, is full code and on a CCHO diet. Pt has a PMHx of bipolar d/o, anxiety, IBS, HTN, DM II and had a cholecystectomy. Pt has completed his 5 day Ativan taper and is scheduled for discharge in the morning.Pt is compliant with his medications and accuchecks.Last CIWA= 5 at 1600. All needs met.All safety measures in place per hospital policy. Will continue to monitor.
[2017-04-09 20:00] VITALS: BP 138/97
[2017-04-09] MEDS ORDERED: HYDROXYZINE PAMOATE 25 MG CAPSULE PO PRN (21:00)
--- NOTE | 2017-04-09 22:51 | NUR ---
PRN MEDS PRN MOTRIN AND BENADRYL GIVEN ORDERED FOR C/O FACIAL PAIN,LEVEL 5/10 AND INSOMNIA.WILL MONITOR.
--- NOTE | 2017-04-09 23:11 | NUR ---
PRN MED PT C/O HEARTBURN.[place] GIVEN ORDERED,WILL MONITOR.
--- NOTE | 2017-04-10 | NUR ---
PRN F/U PRN MEDS EFFECTIVE.PT IS CALM AND RESTING WITH EYES CLOSED,FAST ASLEEP,V/S REFUSED ,CIWA DEFERRED D/T BEING ASLEEP.WILL CONTINUE TO MONITOR.
[2017-04-10 04:00] VITALS: BP 127/86
--- NOTE | 2017-04-10 06:49 | NUR ---
END OF SHIFT Pt is a 41 y/o male admitted for ETOH and benzo dependence. Pt has an allergy to Calcium channel blockers, is full code and on a CCHO diet. Pt has a PMHx of bipolar d/o, anxiety, IBS, HTN, DM II and had a cholecystectomy. Pt has completed his 5 day Ativan taper and is scheduled for discharge today.Pt is compliant with his medications and accuchecks.Last night blood sugar was 127,no Insulin was given.PRN Mylanta,Motrin and Benadryl were given and were effective.Last CIWA= 2 at 0400. Pt slept 6 hrs,fluid intake was 1300 mls,voided x 1.All needs met.All safety measures in place per hospital policy. Will continue to monitor.
--- NOTE | 2017-04-10 07:10 | NUR ---
Start of shift note SBAR report rcv'd. Pt was admitted for ETOH and benzo dependence. Pt is a full code, allergic to calcium channel blockers, and is on a consistent carbohydrate diet. Pt has completed a 5 day ativan taper without any ASE. Pt has a PMHx of bipolar d/o, anxiety, IBS, HTN, DM and a cholecystectomy. Pt is currently resting in bed, pt states that he feels ready for discharge, pending finding a safe discharge location. Pt states that he wants to continue to take ativan upon discharge, states that Dr Lake has told him that he will not prescribe the medication and that he will need to see a psychiatrist to obtain any further medications. All needs addressed at this time. Will continue to monitor pt.
[2017-04-10] MEDS: BLOOD SUGAR DIAGNOSTIC 1 EACH STRIP VI SCH ×2 (07:56→12:12)
[2017-04-10] MEDS: glipiZIDE 10 MG TABLET PO SCH (07:57)
[2017-04-10] MEDS: METFORMIN HCL 500 MG TABLET PO SCH (07:57)
[2017-04-10] MEDS: SUCRALFATE 1 G TABLET PO SCH ×2 (07:57→12:09)
[2017-04-10 08:00] VITALS: BP 131/100
[2017-04-10] MEDS: FOLIC ACID 1 MG TABLET PO SCH (08:34)
[2017-04-10] MEDS: CLONIDINE HCL 0.1 MG TABLET PO SCH (08:34)
[2017-04-10] MEDS: FAMOTIDINE 20 MG TABLET PO SCH (08:35)
[2017-04-10] MEDS: FLUTICASONE PROP NASAL SPRAY 16 GM BOTTLE NS SCH (08:35)
[2017-04-10] MEDS: DULOXETINE 60 MG CAPSULE.DR PO SCH (08:35)
[2017-04-10] MEDS: GABAPENTIN 400 MG CAPSULE PO SCH (08:35)
[2017-04-10] MEDS: LINAGLIPTIN 5 MG TABLET PO SCH (08:35)
[2017-04-10] MEDS: BACLOFEN 10 MG TABLET PO SCH (08:35)
[2017-04-10] MEDS: BENZTROPINE MESYLATE 1 MG TABLET PO SCH (08:35)
[2017-04-10] MEDS: INSULIN REGULAR, HUMAN 300 UNIT/3 ML VIAL SQ PRN (08:37)
[2017-04-10 08:43] VITALS: BP 131/100
[2017-04-10] MEDS: LISINOPRIL 10 MG TABLET PO SCH (08:43)
[2017-04-10] MEDS: THIAMINE HCL 100 MG TABLET PO SCH (08:43)
[2017-04-10] MEDS: MULTIVITAMINS,THERAPEUTIC TABLET PO SCH (08:43)
--- NOTE | 2017-04-10 13:30 | NUR ---
Discharge note Pt was admitted for benzo and ETOH dependence. Pt states that he feels ready for discharge. Pt had a recent CIWA of 5. Pt VS are WNL. Pt accu check blood glucose WNL. Pt verbalized his understanding of the discharge instructions. All belongings, prescriptions and discharge instructions given to pt. Pt ID band removed, pt ambulated off of unit with [facility] DYER, left facility via [facility] transport for [facility].
== END 2017-04-10 13:30 | disposition home or self-care (01) | DRG 895 ==
LOC: SRC 16:28
PROVIDERS: ADMIT Internal Medicine; ATTEND Internal Medicine
PROC: HZ2ZZZZ Detoxification Services for Substance Abuse Treatment (ICD-10-PCS; principal; 2017-04-03)
PROC: HZ31ZZZ Individual Counseling for Substance Abuse Treatment, Behavioral (ICD-10-PCS; 2017-04-05)
PROC: HZ41ZZZ Group Counseling for Substance Abuse Treatment, Behavioral (ICD-10-PCS; 2017-04-05)
DX: F10.231 Alcohol dependence with withdrawal delirium (principal); E87.2 Acidosis; I15.9 Secondary hypertension, unspecified; W19.XXXD Unspecified fall, subsequent encounter; K70.10 Alcoholic hepatitis without ascites; E83.42 Hypomagnesemia; F13.231 Sedative, hypnotic or anxiolytic dependence with withdrawal delirium; Y90.9 Presence of alcohol in blood, level not specified; E86.0 Dehydration; F41.9 Anxiety disorder, unspecified; K58.1 Irritable bowel syndrome with constipation; Z90.49 Acquired absence of other specified parts of digestive tract; Z81.1 Family history of alcohol abuse and dependence; S00.12XD Contusion of left eyelid and periocular area, subsequent encounter; F31.9 Bipolar disorder, unspecified; Z91.89 Other specified personal risk factors, not elsewhere classified; E11.65 Type 2 diabetes mellitus with hyperglycemia
CPT/HCPCS: 36415; 70030-TC; 80307; 80345; 80346; 83735; 85025; 86580; 86592; 86705; 86803; 87340; 87806; A4663; G0480; J1815; J3411; J3535; Q0162; Q0163

== ENCOUNTER 2017-11-27 12:41 | Inpatient (IN) | payer BC, OTHER ==
[~2017-11-27] VITALS: Ht 180.3 cm; Wt 79.4 kg
[~2017-11-27 12:41] MED LIST: BACL10TA PO; BENZ1TAB7 PO; CLON0.1T14 PO; DIPH50CA37 PO; DULO60CA45 PO; FAMO20TA8 PO; FLUT9.9S NS; FOLI1TAB16 PO; GABA-536 PO; GLIP10TA11 PO; LISI10TA5 PO; METF500T6 PO; PHEN16.234 PO; SITA100T PO; TRIF5TAB GT
[2017-11-27] MEDS ORDERED: LORAZEPAM 1 MG TABLET PO PRN ×2 (14:30)
[2017-11-27] MEDS ORDERED: FAMOTIDINE 20 MG PO PRN (14:30)
[2017-11-27] MEDS ORDERED: [UNRECOGNIZED DRUG - OTHER] PO PRN (14:30)
[2017-11-27] MEDS ORDERED: MAGNESIUM HYDROXIDE 30 ML LIQUID UDC PO PRN (14:30)
[2017-11-27] MEDS ORDERED: diphenhydrAMINE 50 MG CAPSULE PO PRN (14:30)
[2017-11-27] MEDS ORDERED: THIAMINE HCL 200 MG/2 ML VIAL IM ONE (14:30)
[2017-11-27] MEDS ORDERED: NICOTINE POLACRILEX 4 MG GUM-PK OF TEN BC PRN (14:30)
[2017-11-27] MEDS ORDERED: MAG HYDROX/AL HYDROX/SIMETH 30 ML LIQUID UDC PO PRN (14:30)
[2017-11-27] MEDS ORDERED: ACETAMINOPHEN 325 MG TABLET PO PRN (14:30)
[2017-11-27] MEDS ORDERED: LORAZEPAM 2 MG/1 ML VIAL IM PRN (14:30)
[2017-11-27] MEDS ORDERED: NICOTINE 14 MG/24HR PATCH TD PRN (14:30)
[2017-11-27] MEDS ORDERED: ONDANSETRON 4 MG/2 ML VIAL IM PRN (14:30)
[2017-11-27] MEDS ORDERED: CLONIDINE HCL 0.1 MG TABLET PO PRN (14:30)
[2017-11-27] MEDS ORDERED: LOPERAMIDE HCL 2 MG CAPSULE PO PRN ×2 (14:30)
[2017-11-27] MEDS ORDERED: DICYCLOMINE HCL 20 MG TABLET PO PRN (14:30)
[2017-11-27] MEDS ORDERED: ONDANSETRON ODT 4 MG TAB.RAPDIS SL PRN (14:30)
[2017-11-27] MEDS ORDERED: MIRALAX 17 GM POWD.PACK PO PRN (14:30)
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
[2017-11-27] MEDS ORDERED: OMEP20TA20 PO (14:51)
[2017-11-27] MEDS ORDERED: TRIF1TAB PO (14:56)
[2017-11-27] MEDS ORDERED: TRAZ-144 PO (14:56)
[2017-11-27] MEDS ORDERED: GABA-534 PO (14:56)
[2017-11-27] MEDS ORDERED: LORA0.5T PO (15:02)
[2017-11-27] MEDS ORDERED: SUCR1TAB PO (15:02)
[2017-11-27] MEDS ORDERED: LEVE500T9 PO (15:02)
[2017-11-27] MEDS ORDERED: ASPI1TAB2 PO (15:03)
[2017-11-27 15:06] LABS: BASOPHILS % (AUTO) 0.7 % (0.0-2.0); EOSINOPHILS # (AUTO) 0.3 K/uL (0.0-0.7); EOSINOPHILS % (AUTO) 4.6 % (0.0-7.0); HEMATOCRIT 48.9 % (36.7-47.1); HEMOGLOBIN 16.5 g/dL (12.5-16.3); LYMPHOCYTES # (AUTO) 1.4 K/uL (20.0-40.0); LYMPHOCYTES % (AUTO) 22.1 % (20.5-51.5); MEAN CORPUSCULAR HEMOGLOBIN 31.5 uug (23.8-33.4); MEAN CORPUSCULAR HGB CONC 34 g/dL (32.5-36.3); MEAN CORPUSCULAR VOLUME 93.2 fL (73.0-96.2); MONOCYTES # (AUTO) 0.8 K/uL (2.0-10.0); MONOCYTES % (AUTO) 12.2 % (0.0-11.0); NEUTROPHILS # (AUTO) 3.8 K/uL (1.8-8.9); NEUTROPHILS % (AUTO) 60.4 % (38.5-71.5); PLATELET COUNT (AUTO) 315 K/uL (152-348); RED BLOOD CELL COUNT(AUTO) 5.24 MIL/uL (4.06-5.63); WHITE BLOOD COUNT (AUTO) 6.4 K/uL (3.6-10.2)
[2017-11-27] MEDS ORDERED: BENZ1TAB7 PO (15:06)
[2017-11-27 15:14] LABS: BILIRUBIN,TOTAL 0.6 mg/dL (0.2-1.0); CREATININE 1.3 mg/dL (0.6-1.3); MAGNESIUM 1.6 mg/dL (1.8-2.4); POTASSIUM 4.6 mmol/L (3.5-5.1); TOTAL PROTEIN, SERUM 8.3 g/dL (6.4-8.2)
[2017-11-27 15:20] LABS: *AMPHETAMINE, URINE NEGATIVE (NEGATIVE); *BARBITURATE, URINE POSITIVE (NEGATIVE); *CANNABINOID, URINE NEGATIVE (NEGATIVE); *COCCAINE, URINE POSITIVE (NEGATIVE); *OPIATE, URINE NEGATIVE (NEGATIVE); *PHENCYCLIDINE SCREEN,URINE NEGATIVE (NEGATIVE)
[2017-11-27] MEDS: IBUPROFEN 400 MG TABLET PO PRN (15:27)
--- NOTE | 2017-11-27 15:27 | NUR ---
PRN IBUPROFEN 400 MG PO PRN GIVEN FOR HEADACHE WITH FACIAL GRIMACING AND IRRITABILITY. WILL MONITOR AND REASSESS.
[2017-11-27 16:00] VITALS: BP 110/67
[2017-11-27] MEDS ORDERED: MAGNESIUM OXIDE 400 MG TABLET PO ONE (16:00)
[2017-11-27] MEDS: LORAZEPAM 1 MG TABLET PO SCH ×2 (16:13→20:18)
--- NOTE | 2017-11-27 16:27 | NUR ---
REASSESSMENT PT REPORTED MED IS EFFECTIVE AND NOW TOLERABLE. WILL CONTINUE TO MONITOR.
[2017-11-27] MEDS ORDERED: [UNRECOGNIZED DRUG - OTHER] PO PRN (17:00)
[2017-11-27] MEDS: [UNRECOGNIZED DRUG - OTHER] PO SCH ×2 (17:14→20:21)
[2017-11-27] MEDS: [UNRECOGNIZED DRUG - OTHER] PO SCH (17:14)
[2017-11-27] MEDS: SUCRALFATE PO SCH ×2 (17:14→20:21)
[2017-11-27] MEDS: METFORMIN 1000 MG PO SCH (17:14)
[2017-11-27] MEDS: GABAPENTIN 300 MG PO SCH ×2 (17:16→20:19)
[2017-11-27] MEDS: [UNRECOGNIZED DRUG - OTHER] PO SCH ×2 (17:16→20:19)
--- NOTE | 2017-11-27 17:19 | NUR ---
PRN PO PRN GIVEN FOR C/O IBS PAIN. WILL MONITOR AND REASSESS.
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
--- NOTE | 2017-11-27 18:19 | NUR ---
REASSESSMENT PT REPORT MED IS EFFECTIVE AND PT APPEARS MORE CALM. SAFETY MEASURES IN PLACE.
--- NOTE | 2017-11-27 18:30 | NUR ---
PT REPORTS A HX OF ACUTE PANCREATITIS EPISODES X5. PT STATES HIS "PANCREAS IS PERMANENTLY DAMAGED AND AMYLASE DOES NOT INCREASE WITH PANCREATITIS; CT SCAN WILL SHOW ENLARGEMENT." PT C/O PAIN DEVELOPING IN THE EPIGASTRIC AREA WHEN DEVELOPING PANCREATITIS. NOTIFIED MD AND QUINCY OF HX.
--- NOTE | 2017-11-27 18:35 | NUR ---
PRN MAALOX 30 ML PO PRN GIVEN FOR EPIGASTRIC PAIN. PT STATES HE FEARS OF HAVING PANCREATITIS AGAIN. MD NOTIFIED. WILL MONITOR AND REASSESS.
--- NOTE | 2017-11-27 18:53 | NUR ---
END OF SHIFT ADMITTED PT TODAY @1429 FOR ETOH AND BENZO WITHDRAWAL. LAST CIWA 14 @1600. PT REMAINS IN ROOM, PRESENTS ANXIETY, AGITATION, FACIAL FLUSHING, TREMORS, ANXIETY, AGITATION, SENSATION OF FULLNESS IN THE HEAD, DIAPHORESIS, RESTLESSNESS, DYSPEPSIA. PT HAS C/O EPIGASTRIC PAIN AND VERBALIZED HE IS WORRIED HE MAY HAVE PANCREATITIS (SEE NOTES). PT HAS BEEN GIVEN , IBUPROFEN, AND MAALOX PRNS. ATE 75% DINNER. FLUID INTAKE 355ML, VOIDED X1, BM 0. SAFETY MEASURES IN PLACE. ENDORSEMENT GIVEN TO EGG SMELLER NURSE.
--- NOTE | 2017-11-27 19:30 | NUR ---
START OF SHIFT Received 42 year old male patient admitted on 11/27/17 for ETOH and Benzodiazepine withdrawal. He allergic to calcium channel blockers and has a PMHx of DM type II. Pt is alert and oriented x4. Pt noted with anxiety, irritability, restlessness, and nasal congestion. . Per endorsement, his magnesium was replaced. He received PRN , Motrin and Maalox. Pt reports Maalox was effective. He is currently receiving a 5 day Ativan taper and is tolerating well. Last CIWA: 14 at 1600. Breathing is even and unlabored, safety measures in place. Will monitor.
--- NOTE | 2017-11-27 19:35 | NUR ---
PRN MAALOX REASSESSMENT Pt reports a decrease in epigastric pain. Pt stated " I've had pancreatitis before, I don't think I'm going to have it here." Safety measures in place. Will continue to monitor.
[2017-11-27 20:00] VITALS: BP 144/87
[2017-11-27] MEDS ORDERED: NORMAL SALINE NASAL 45 ML BOTTLE NS PRN (20:15)
[2017-11-27] MEDS: DONNATAL PO SCH (20:20)
[2017-11-27] MEDS: FLUTICASONE PROP NASAL SPRAY 16 GM BOTTLE NS PRN (21:24)
--- NOTE | 2017-11-27 21:24 | NUR ---
PRN FLONASE Pt complains of nasal congestion and requests Flonase. PRN Flonase administered as ordered. Will continue to monitor.
--- NOTE | 2017-11-27 22:24 | NUR ---
PRN REASSESSMENT PRN flonase effective. Pt reports decrease in nasal congestion. Will continue to monitor.
--- NOTE | 2017-11-28 | NUR ---
VITALS REFUSED, CIWA DEFERRED 0000 vitals refused. CIWA deferred d/t pt lying in bed with eyes closed noted to be asleep. Breathing is even and unlabored, safety measures in place. Will monitor.
--- NOTE | 2017-11-28 04:00 | NUR ---
VITALS REFUSED, CIWA DEFERRED 0400 vitals refused. CIWA deferred d/t pt lying in bed with eyes closed noted to be asleep. Breathing is even and unlabored, safety measures in place. Will monitor.
[2017-11-28 07:06] LABS: HEPATITIS B SURFACE AG Negative (Negative)
--- NOTE | 2017-11-28 07:15 | NUR ---
END OF SHIFT Pt is a 42 year old male patient admitted on 11/27/17 for ETOH and Benzodiazepine withdrawal. He has a PMHx of DM type II. Pt remains alert and oriented x4. Pt was noted with anxiety, irritability, restlessness, and nasal congestion during the shift. He continues on a 5 day Ativan taper and is tolerating well. At 2123 he received PRN Flonase for nasal congestion. Medication was effective. He slept a total of 6 hrs, Intake: 1,000mL,Void:x2, BM:0, CIWA: 14 at 2000. Breathing is even and unlabored, safety measures in place. Endorsed to AM shift.
--- NOTE | 2017-11-28 07:30 | NUR ---
START OF SHIFT Pt is a 42 yr old male, A&Ox4. Pt was admitted on 11/27/17 for ETOH/Benzo w/d and is on a 5 day Ativan taper. Received report from shiftman nurse. Pt is on a consistent carb diet for DM II. Pt received Flonase PRN during the night. Medication was effective. Pt slept for 6 hrs. Last CIWA score was 14 at 1999. Pt is currently in bed resting with respirations even and unlabored. Skin is intact, warm and moist to touch. Pt is on fall and seizure precautions. Call light is within reach. will continue to monitor.
[2017-11-28 08:00] VITALS: BP 120/74
[2017-11-28] MEDS: LORAZEPAM 1 MG TABLET PO SCH ×3 (08:38→21:01)
[2017-11-28] MEDS: FOLIC ACID 1 MG TABLET PO SCH (08:39)
[2017-11-28] MEDS: MULTIVITAMINS,THERAPEUTIC TABLET PO SCH (08:39)
[2017-11-28] MEDS: THIAMINE HCL 100 MG TABLET PO SCH (08:39)
[2017-11-28] MEDS: [UNRECOGNIZED DRUG - OTHER] PO SCH ×2 (08:40→17:27)
[2017-11-28] MEDS: [UNRECOGNIZED DRUG - OTHER] PO SCH ×4 (08:40→21:01)
[2017-11-28] MEDS: METFORMIN 1000 MG PO SCH ×2 (08:40→17:27)
[2017-11-28] MEDS: GABAPENTIN 300 MG PO SCH ×3 (08:40→21:02)
[2017-11-28] MEDS: [UNRECOGNIZED DRUG - OTHER] PO SCH ×3 (08:40→21:02)
[2017-11-28] MEDS: SUCRALFATE PO SCH ×4 (08:40→21:01)
[2017-11-28] MEDS: DONNATAL PO SCH ×4 (08:41→21:02)
[2017-11-28] MEDS ORDERED: TUBERCULIN,PURIF.PROT.DERIV. 5 TU/0.1 ML TEST ID ONE (09:00)
[2017-11-28] MEDS ORDERED: PATIENT MAY USE OWN MED- MD OK PO SCH (09:00)
[2017-11-28 12:00] VITALS: BP 127/85
[2017-11-28] MEDS: DOCUSATE SODIUM 250 MG CAPSULE PO SCH (12:20)
[2017-11-28] MEDS: JANUVIA 100MG PO SCH (12:20)
--- NOTE | 2017-11-28 14:39 | NUR ---
Client was prompted to attend group sessions and stated he would do so if he was feeling physically well enough.
[2017-11-28 16:00] VITALS: BP 132/96
--- NOTE | 2017-11-28 18:57 | NUR ---
END OF SHIFT Pt is a 42 yr old male, AA&Ox4. Pt was admitted on 11/27/17 for ETOH/Benzo withdrawal and is on 5 day Ativan taper as ordered. Medication renan well. Pt has been observed with increase fatigue and remained in his room throughout the day. Pt was encouraged to attend group therapy but pt refused. Pt c/o anxiety, chills, and sweats. Pt is noted with facial sweats. Skin is intact, warm and moist to touch. No PRNs were given during the day. Last CIWA score was 12 at 1600. Pt was encouraged increase fluid intake for hydration. Safety precautions observed. Call light is within reach.
--- NOTE | 2017-11-28 19:30 | NUR ---
START OF SHIFT Received 42 year old male patient admitted on 11/27/17 for ETOH and Benzodiazepine withdrawal. Pt is alert and oriented x4. Pt was noted with anxiety, sweats, dizziness, restlessness, and nasal congestion. He continues on a 5 day Ativan taper and is tolerating well. Per endorsement, he did not attend group and did not receive or request PRN medications. Last CIWA:12 at 1600. Breathing is even and unlabored, safety measures in place. Will monitor.
[2017-11-28 20:00] VITALS: BP 139/93
[2017-11-28] MEDS ORDERED: TRIFLUOPERAZINE 5 MG PO SCH (21:00)
[2017-11-28] MEDS: CLONIDINE HCL 0.1 MG TABLET PO SCH (21:03)
[2017-11-28] MEDS: TRIFLUOPERAZINE 1 MG PO SCH (21:11)
[2017-11-28] MEDS: FLUTICASONE PROP NASAL SPRAY 16 GM BOTTLE NS PRN (21:13)
--- NOTE | 2017-11-28 21:13 | NUR ---
PRN FLONASE Pt complains of nasal congestion and is requesting PRN Flonase. PRN Flonase administered as ordered. Will monitor effectiveness.
--- NOTE | 2017-11-28 22:13 | NUR ---
PRN FLONASE REASSESSMENT PRN medication effective. Pt reports he does not feel as congested. Safety measures in place. Will monitor.
--- NOTE | 2017-11-29 | NUR ---
VITALS REFUSED/CIWA DEFERRED 0000 vitals refused. CIWA deferred d/t pt lying in bed with eyes closed noted to be asleep. Breathing is even and unlabored, safety measures in place. Will continue to monitor.
--- NOTE | 2017-11-29 04:00 | NUR ---
VITALS REFUSED, CIWA DEFERRED 0400 vitals were refused. CIWA deferred d/t pt lying in bed with eyes closed noted to be asleep. Breathing is even and unlabored, safety measures in place. Will monitor.
--- NOTE | 2017-11-29 07:03 | NUR ---
END OF SHIFT Pt is a 42 year old male patient admitted on 11/27/17 for ETOH and Benzodiazepine withdrawal. He remains alert and oriented x4. He was noted with anxiety, sweats, dizziness, restlessness, and nasal congestion. He continues on a 5 day Ativan taper and is tolerating well. He received PRN Flonase at 2112 for nasal congestion. He slept a total of 7 hrs, Intake: 1,000mL, Void: x1, BM:0, CIWA:13 at 2000. Breathing is even and unlabored, safety measures in place. Endorsed to AM shift.
--- NOTE | 2017-11-29 07:30 | NUR ---
START OF SHIFT Pt is a 42 yr old male, AA&Ox4. Pt was admitted on 11/27/17 for ETOH/Benzo w/d and is on a 5 day Ativan taper. Received report from overnight stocker nurse. Pt is on a consistent carb diet for DM II. Pt received Flonase PRN during the night. Medication was effective. Pt slept for 7 hrs. Last CIWA score was 13 at 1999. Pt is currently c/o anxiety. Pt is noted with facial sweats and fine tremors on bilateral hands. Skin is intact, warm and moist to touch. Pt was encouraged increase fluid intake. Pt is on fall and seizure precautions. Call light is within reach. Will continue to monitor.
[2017-11-29 08:00] VITALS: BP 125/87
[2017-11-29] MEDS: [UNRECOGNIZED DRUG - OTHER] PO SCH ×2 (08:34→17:41)
[2017-11-29] MEDS: METFORMIN 1000 MG PO SCH ×2 (08:34→17:41)
[2017-11-29] MEDS: TRIFLUOPERAZINE 1 MG PO SCH ×2 (08:34→20:40)
[2017-11-29] MEDS: [UNRECOGNIZED DRUG - OTHER] PO SCH ×4 (08:35→20:43)
[2017-11-29] MEDS: MULTIVITAMINS,THERAPEUTIC TABLET PO SCH (08:35)
[2017-11-29] MEDS: DULOXETINE 60 MG CAPSULE.DR PO SCH (08:35)
[2017-11-29] MEDS: [UNRECOGNIZED DRUG - OTHER] PO SCH ×3 (08:35→20:41)
[2017-11-29] MEDS: SUCRALFATE PO SCH ×4 (08:35→20:43)
[2017-11-29] MEDS: DOCUSATE SODIUM 250 MG CAPSULE PO SCH (08:35)
[2017-11-29] MEDS: DONNATAL PO SCH ×4 (08:35→20:42)
[2017-11-29] MEDS: THIAMINE HCL 100 MG TABLET PO SCH (08:35)
[2017-11-29] MEDS: JANUVIA 100MG PO SCH (08:35)
[2017-11-29] MEDS: GABAPENTIN 300 MG PO SCH ×3 (08:35→20:41)
[2017-11-29] MEDS: FOLIC ACID 1 MG TABLET PO SCH (08:35)
[2017-11-29] MEDS: CLONIDINE HCL 0.1 MG TABLET PO SCH ×2 (08:36→20:40)
[2017-11-29] MEDS ORDERED: LORAZEPAM 1 MG TABLET PO SCH ×2 (09:00→21:00)
[2017-11-29] MEDS: FLUTICASONE PROP NASAL SPRAY 16 GM BOTTLE NS PRN ×2 (09:03→20:48)
[2017-11-29 12:00] VITALS: BP 130/72
[2017-11-29] MEDS: LORATADINE 10 MG TABLET PO SCH (13:09)
[2017-11-29] MEDS: LORAZEPAM 1 MG TABLET PO SCH ×2 (13:09→17:41)
[2017-11-29 16:00] VITALS: BP 142/95
--- NOTE | 2017-11-29 18:47 | NUR ---
END OF SHIFT Pt is a 42 yr old male, AA&Ox4. Pt was admitted on 11/27/17 for ETOH/Benzo withdrawal and is on 5 day Ativan taper as ordered. Medication renan well. Pt continues to be observed with increase fatigue and remained in his room throughout the day. Pt was encouraged to attend group therapy but pt refused. Pt c/o anxiety, chills, and sweats. Pt appearance is disheveled and unshaven. Pt was encouraged to take a shower during the day but stated, Ill take a shower when I get my shaver. Skin is intact, warm and moist to touch. Pt received Flonase PRN for nasal congestion. Medication was effective. Last CIWA score was 13 at 1600. Pt was encouraged increase fluid intake for hydration. Safety precautions observed. Call light is within reach.
--- NOTE | 2017-11-29 19:43 | NUR ---
START OF SHIFT NOTE Rcvd report from outgoing nurse. Pt. is in his room and is A/O to person, place, time, and purpose. Pt presents w/ anxiety, depressed and withdrawn mood, odorous, disheveled appearance, sweats, fine tremors, and chills. Pt. did not attend group therapy sessions today, even though he was encouraged to. Pt. denies S/I or H/I. Pt. rcvd. PRN Flonase for stuffy nose, noted effective. Pt. is on a 5 day Ativan taper, today is day 2. Last CIWA 13 @ 1600. Call light within reach. Pt. will continue to be monitored and needs met.
[2017-11-29 20:00] VITALS: BP 130/82
--- NOTE | 2017-11-29 20:48 | NUR ---
PRN ADMINISTRATION Pt. rcvd Flonase 16 mg 2 sprays in each nostril for nasal congestion. Will assess effectiveness in 1 hr.
--- NOTE | 2017-11-29 21:48 | NUR ---
PRN REASSESSMENT Pt. stated relief from congestion after rcving Flonase. Pt.'s breathing is clear and even
--- NOTE | 2017-11-30 | NUR ---
RN NOTE Pt. deferred CIWA and refused V/S. Pt. is in bed w/ his eyes closed. Pt.'s breathing is even and unlabored.
--- NOTE | 2017-11-30 04:00 | NUR ---
RN NOTE Pt. deferred CIWA and refused V/S. Pt. is in bed w/ his eyes closed. Pt.'s breathing is unlabored and even.
--- NOTE | 2017-11-30 07:15 | NUR ---
END OF SHIFT NOTE Endorsed pt. to oncoming nurse. Pt. is a 42 y/o male A/O to person, place, time, and purpose. Pt. was admitted for medically supervised withdrawal from ETOH and Benzodiazepines. Pt continue to present w/ anxiety, depressed and withdrawn mood, odorous, disheveled appearance, sweats, fine tremors, and chills. Pt. did not attend group therapy sessions today, even though he was encouraged to. Pt. rcvd. PRN Flonase 16 mg 2 sprays for nasal congestion, noted effective. Pt.s fluid intake was 1313 ml. Pt. voided 3 times and slept for 3 hrs. Last CIWA 14 @ 1999. Call light within reach.
--- NOTE | 2017-11-30 07:45 | NUR ---
START OF SHIFT Pt is a 42 yr old male, AA&Ox4. Pt was admitted on 11/27/17 for ETOH/Benzo w/d and is on a 5 day Ativan taper. Received report from tactical debriefer officer nurse. Pt is on a consistent carb diet for DM II. Pt received Flonase PRN during the night for nasal congestion. Medication was effective. Pt reported of not sleeping well throughout the night and was reported of sleeping 3 hrs. Last CIWA score was 14 during the night. Pt is currently c/o anxiety and headache. Skin is intact, warm and moist to touch. Fine tremors are seen. Pt was encouraged increase fluid intake. Pt is on fall and seizure precautions. Call light is within reach. Will continue to f/u with eMAR.
[2017-11-30 08:00] VITALS: BP 102/67
[2017-11-30] MEDS: [UNRECOGNIZED DRUG - OTHER] PO SCH ×2 (09:00→17:17)
[2017-11-30] MEDS: DONNATAL PO SCH ×4 (09:00→20:29)
[2017-11-30] MEDS: METFORMIN 1000 MG PO SCH ×2 (09:00→17:17)
[2017-11-30] MEDS ORDERED: LORAZEPAM 1 MG TABLET PO SCH ×3 (09:00→21:00)
[2017-11-30] MEDS: [UNRECOGNIZED DRUG - OTHER] PO SCH ×4 (09:00→20:28)
[2017-11-30] MEDS: SUCRALFATE PO SCH ×4 (09:00→20:28)
[2017-11-30] MEDS: TRIFLUOPERAZINE 1 MG PO SCH ×2 (09:01→20:37)
[2017-11-30] MEDS: [UNRECOGNIZED DRUG - OTHER] PO SCH ×3 (09:01→20:29)
[2017-11-30] MEDS: MULTIVITAMINS,THERAPEUTIC TABLET PO SCH (09:01)
[2017-11-30] MEDS: DULOXETINE 60 MG CAPSULE.DR PO SCH (09:01)
[2017-11-30] MEDS: LORATADINE 10 MG TABLET PO SCH (09:01)
[2017-11-30] MEDS: JANUVIA 100MG PO SCH (09:01)
[2017-11-30] MEDS: FOLIC ACID 1 MG TABLET PO SCH (09:01)
[2017-11-30] MEDS: THIAMINE HCL 100 MG TABLET PO SCH (09:01)
[2017-11-30] MEDS: CLONIDINE HCL 0.1 MG TABLET PO SCH (09:01)
[2017-11-30] MEDS: DOCUSATE SODIUM 250 MG CAPSULE PO SCH (09:01)
[2017-11-30] MEDS: GABAPENTIN 300 MG PO SCH ×3 (09:01→20:29)
[2017-11-30] MEDS ORDERED: METHOCARBAMOL 500 MG TABLET PO PRN (11:30)
[2017-11-30] MEDS: IBUPROFEN 400 MG TABLET PO PRN (11:34)
[2017-11-30] MEDS: FLUTICASONE PROP NASAL SPRAY 16 GM BOTTLE NS PRN (11:34)
--- NOTE | 2017-11-30 11:35 | NUR ---
PRN GIVEN Pt c/o headache and nasal congestion. Motrin 400mg PO PRN and Flonase 2 spray each PRN was given as ordered. Encouraged increase fluid intake. Will continue to monitor.
[2017-11-30 12:00] VITALS: BP 114/63
--- NOTE | 2017-11-30 12:35 | NUR ---
PRN RE-ASSESSMENT Motrin 400mg PO PRN and Flonase PRN was effective. Pt denies any headache. Encouraged increase fluid intake. Will continue to monitor.
[2017-11-30 16:00] VITALS: BP 122/68
--- NOTE | 2017-11-30 19:11 | NUR ---
END OF SHIFT Pt is a 42 yr old male, AA&Ox4. Pt was admitted on 11/27/17 for ETOH/Benzo withdrawal and is on a 5 day Ativan taper as ordered. Medication renan well. Pt has been cooperative with medication regimen and plan of care. Pt was encouraged to attend group therapy but refused to attend and remained in his room throughout. Pt was c/o anxiety, agitation, chills, nasal congestion and headache during the day. Pt received Motrin 400mg PO PRN and Flonase PRN. Medication was effective. Last CIWA score was 11 at 1600. Pt was encouraged increase fluid intake for hydration. Safety precautions observed. Call light is within reach.
--- NOTE | 2017-11-30 19:51 | NUR ---
START OF SHIFT NOTE Rcvd report from outgoing nurse. Pt. is in his room. Pt. is 42 y/o male A/O to person, place, time, and purpose. Pt. was admitted for medically supervised withdrawal from ETOH and Benzodiazepines. Pt. presents w/ anxiety, agitation, depressed and withdrawn mood, blunted affect, sweats, and flushed face. Pt rcvd PRN Motrin @1130 and Flonase, both noted effective. Pt. denies S/I and H/I. Last CIWA 11@ 1600. Call light within reach. Pt. will continue to be monitored and needs met.
[2017-11-30 20:00] VITALS: BP 112/88
[2017-11-30] MEDS ORDERED: CLONIDINE HCL 0.1 MG TABLET PO SCH ×2 (21:00)
[2017-11-30] MEDS ORDERED: DONNATAL PO PRN (22:00)
--- NOTE | 2017-12-01 00:09 | NUR ---
CIWA DEFERRED AND V/S REFUSED 0000 CIWA deferred and V/S refused by pt. Pt. is in bed w/ his eyes closed. Pt.'s breathing is unlabored and even.
--- NOTE | 2017-12-01 04:06 | NUR ---
CIWA DEFERRED AND V/S REFUSED 0400 CIWA deferred and V/S refused. Pt. is in bed w/ his eyes closed. Pt.'s breathing is unlabored and even.
--- NOTE | 2017-12-01 07:14 | NUR ---
END OF SHIFT NOTE Endorsed pt. to oncoming nurse. Pt. is in his room. Pt. is 42 y/o male A/O to person, place, time, and purpose. Pt. was admitted for medically supervised withdrawal from ETOH and Benzodiazepines. Pt. continues to present w/ anxiety, agitation, depressed and withdrawn mood, blunted affect, sweats, and flushed face while awake. Pt rcvd no PRN medications during the night. Pt. continues to deny S/I and H/I. Pt.s fluid intake was 800 ml. Pt. voided 1 time and slept for 5.25 hrs. Last CIWA 11 @ 1999. Call light within reach.
--- NOTE | 2017-12-01 07:40 | NUR ---
Start of shift Patient 42 y/o male admitted for medically supervised withdrawal of ETOH and Benzos. Patient alert & oriented to name, place & situation. Presents with fine tremors, agitation, anxiety, restlessness, body aches, depressed mood, and flat affect. Pt remains disheveled and unshaved. Pt started on 5 day Ativan taper (day day 4). Last CIWA 11. Pt has diabetes type II. Pt slept 5 hours last night. Patient is compliant with medication regimen. Encourage pt to attend group therapy to learn/develop coping skills to prevent relapse. Pt allergic to calcium channel blockers, FULL CODE. Fall and seizure precautions observed. Bed in lowest/locked position, side rails up X2, call light within reach. Will continue to monitor for withdrawal symptoms.
[2017-12-01 08:00] VITALS: BP 109/70
[2017-12-01] MEDS: TRIFLUOPERAZINE 1 MG PO SCH (08:10)
[2017-12-01] MEDS: [UNRECOGNIZED DRUG - OTHER] PO SCH ×2 (08:11→14:54)
[2017-12-01] MEDS: METFORMIN 1000 MG PO SCH (08:11)
[2017-12-01] MEDS: DULOXETINE 60 MG CAPSULE.DR PO SCH (08:11)
[2017-12-01] MEDS: GABAPENTIN 300 MG PO SCH ×2 (08:11→14:54)
[2017-12-01] MEDS: THIAMINE HCL 100 MG TABLET PO SCH (08:11)
[2017-12-01] MEDS: [UNRECOGNIZED DRUG - OTHER] PO SCH (08:11)
[2017-12-01] MEDS: SUCRALFATE PO SCH ×2 (08:11→12:35)
[2017-12-01] MEDS: [UNRECOGNIZED DRUG - OTHER] PO SCH ×2 (08:11→12:35)
[2017-12-01] MEDS: DONNATAL PO SCH ×2 (08:11→12:34)
[2017-12-01] MEDS: FOLIC ACID 1 MG TABLET PO SCH (08:12)
[2017-12-01] MEDS: MULTIVITAMINS,THERAPEUTIC TABLET PO SCH (08:12)
[2017-12-01] MEDS: LORATADINE 10 MG TABLET PO SCH (08:12)
[2017-12-01] MEDS: DOCUSATE SODIUM 250 MG CAPSULE PO SCH (08:12)
[2017-12-01] MEDS ORDERED: LORAZEPAM 1 MG TABLET PO SCH (09:00)
[2017-12-01] MEDS ORDERED: SITAGLIPTIN PHOSPHATE 50 MG TABLET PO SCH (09:00)
[2017-12-01 12:00] VITALS: BP 115/76
[2017-12-01] MEDS ORDERED: CLON0.1T14 PO (13:27)
[2017-12-01] MEDS ORDERED: DIPH50CA37 PO (13:27)
--- NOTE | 2017-12-01 15:27 | NUR ---
AMA Patient left AMA, Pt refused to comply with treatment plan. Pt educated about the risks and consequences of leaving AMA, Pt verbalized understanding but was adamant about leaving. Multiple staff members including the doctor, patient advocates and nurses attempted to reason with the Pt without any success. Vital signs WNL, skin intact. Pt denies any suicidal or homicidal ideations. Pt psychiatrist and MD were notified and aware. Pt was given a list of community resources, AMA forms explained and signed. All belongings and medications returned to Pt. Pt left facility AMA on 12/01/2017 at 1527.
[2017-12-02] MEDS ORDERED: LORAZEPAM 1 MG TABLET PO SCH (09:00)
== END 2017-12-01 15:27 | disposition left against medical advice (07) | DRG 894 ==
LOC: SRC 13:44
PROVIDERS: ADMIT Internal Medicine; ATTEND Internal Medicine
PROC: HZ2ZZZZ Detoxification Services for Substance Abuse Treatment (ICD-10-PCS; principal; 2017-11-27)
PROC: HZ31ZZZ Individual Counseling for Substance Abuse Treatment, Behavioral (ICD-10-PCS; 2017-11-28)
PROC: HZ41ZZZ Group Counseling for Substance Abuse Treatment, Behavioral (ICD-10-PCS; 2017-11-28)
DX: F10.232 Alcohol dependence with withdrawal with perceptual disturbance (principal); E87.3 Alkalosis; I15.9 Secondary hypertension, unspecified; K70.10 Alcoholic hepatitis without ascites; E83.42 Hypomagnesemia; E86.0 Dehydration; F13.230 Sedative, hypnotic or anxiolytic dependence with withdrawal, uncomplicated; K29.20 Alcoholic gastritis without bleeding; Y90.0 Blood alcohol level of less than 20 mg/100 ml; Z91.89 Other specified personal risk factors, not elsewhere classified; Z90.49 Acquired absence of other specified parts of digestive tract; F14.10 Cocaine abuse, uncomplicated; F41.9 Anxiety disorder, unspecified; Z59.1 Inadequate housing; Z81.1 Family history of alcohol abuse and dependence; K58.1 Irritable bowel syndrome with constipation; F17.210 Nicotine dependence, cigarettes, uncomplicated; Z79.84 Long term (current) use of oral hypoglycemic drugs; E11.9 Type 2 diabetes mellitus without complications; Z59.9 Problem related to housing and economic circumstances, unspecified
CPT/HCPCS: 36415; 70030-TC; 80307; 80345; 80353; 83735; 85025; 86580; 86592; 86705; 86803; 87340; 87806; G0480; J3411; J3535; Q0163